=== PATIENT | female | born 1945 | race Caucasian/White ===

== ENCOUNTER 2019-09-22 10:44 | Outpatient (CLI) | payer MEDICARE, OTHER ==
--- NOTE | 2019-09-22 11:54 | MRI ---
EXAM: MRI thoracic spine without contrast HISTORY: Mid back pain for a few months. History of vertebral compression fracture and osteoporosis COMPARISON: None TECHNIQUE: Multiplanar multisequence MR images were obtained of the thoracic spine without contrast. FINDINGS: There is chronic wedging of the T7 vertebral body with approximately 50% height loss. No marrow signa l abnormality is seen on this exam within this vertebral body. There is also slight height loss of the superior endplate of T11 without marrow signal abnormality on today's exam. Generalized disc baron ccation is seen. The vertebral bodies and intervertebral discs demonstrate normal alignment without subluxation. Moderate anterior osteophytes are seen throughout the thoracic spine, more prominent on the right side of the vertebral bodies. The visualized cord demonstrates normal signal throughout. There is a small amount of fluid lateral to the T4 and T5 vertebral bodies which likely represents tr chiara fluid in the left hemithorax. The other prevertebral soft tissues are unremarkable. No paraspinal soft tissue abnormality is seen. T1/2: No significant posterior bulge or protrusion. No posterior facet arthrosis. No central canal stenosis. No neural foraminal stenosis. T2/3: No significant posterior bulge or protrusion. No posterior facet arthrosis. No central canal stenosis. No neural foraminal stenosis. T3/4: No significant posterior bulge or protrusion. No posterior facet arthrosis. No central canal stenosis. No neural foraminal stenosis. T4/5: No significant posterior bulge or protrusion. No posterior facet arthrosis. No central canal stenosis. No neural foraminal stenosis. T5/6: No significant posterior bulge or protrusion. No posterior facet arthrosis. No central canal stenosis. No neural foraminal stenosis. T6/7: No significant posterior bulge or protrusion. No posterior facet arthrosis. No central canal stenosis. No neural foraminal stenosis. T7/8: Minimal disc osteophyte complex. No posterior facet arthrosis. No central canal stenosis. No neural foraminal stenosis. T8/9: No significant posterior bulge or protrusion. No posterior facet arthrosis. No central canal stenosis. No neural foraminal stenosis. T9/10: No significant posterior bulge or protrusion. No posterior facet arthrosis. No central canal stenosis. No neural foraminal stenosis. T10/11: No significant posterior bulge or protrusion. No posterior facet arthrosis. No central marina l stenosis. No neural foraminal stenosis. T11/12: No significant posterior bulge or protrusion. No posterior facet arthrosis. No central marina l stenosis. No neural foraminal stenosis. T12/L1: No significant posterior bulge or protrusion. No posterior facet arthrosis. No central marina l stenosis. No neural foraminal stenosis. IMPRESSION: Chronic compression fractures of T7 and T11 without acute abnormality of the spine.
== END 2019-09-22 10:45 | disposition home or self-care (01) ==
LOC: BICMRI 10:44
PROVIDERS: ATTEND Internal Medicine Rheumatology
DX: M80.88XD Other osteoporosis with current pathological fracture, vertebra(e), subsequent encounter for fracture with routine healing (principal)
CPT/HCPCS: 72146

== ENCOUNTER 2021-07-18 13:15 | Outpatient (CLI) | payer OTHER | END 2021-07-18 13:16 | disposition home or self-care (01) | LOC: DTY/OP 13:15 | PROVIDERS: ATTEND Physician Assistant Medical | DX: K76.0 Fatty (change of) liver, not elsewhere classified (principal); K86.1 Other chronic pancreatitis | CPT/HCPCS: 97802 ==

== ENCOUNTER 2022-07-01 08:43 | Outpatient (CLI) | payer MEDICARE, OTHER ==
[2022-07-01] MEDS ORDERED: Iopamidol 370 76% 100 ML VIAL ONE (14:52)
== END 2022-07-01 08:44 | disposition home or self-care (01) ==
LOC: CT 08:43
PROVIDERS: ATTEND Internal Medicine Gastroenterology
DX: K86.9 Disease of pancreas, unspecified (principal); K86.1 Other chronic pancreatitis; R19.7 Diarrhea, unspecified; R93.3 Abnormal findings on diagnostic imaging of other parts of digestive tract
CPT/HCPCS: 74177; 82565; Q9967

== ENCOUNTER 2024-06-06 09:45 | Outpatient (CLI) | payer MEDICARE, OTHER | END 2024-06-06 09:46 | disposition home or self-care (01) | LOC: BICRAD 09:45 | PROVIDERS: ATTEND Internal Medicine Gastroenterology | DX: R91.1 Solitary pulmonary nodule (principal); K86.1 Other chronic pancreatitis; K86.9 Disease of pancreas, unspecified; F43.21 Adjustment disorder with depressed mood | CPT/HCPCS: 71046 ==